=== PATIENT | female | born 1955 | race Caucasian/White ===

== ENCOUNTER 2016-08-11 10:27 | Emergency (ER) | payer MEDICARE ==
[2016-08-11 10:43] VITALS: O2SAT 96
[2016-08-11] MEDS ORDERED: Sodium Chloride 0.9% 1000 ML 1,000 ML IV STA (10:54)
[2016-08-11] MEDS ORDERED: Hydromorphone 1 mg/ml Ampule IV ONE ×2 (10:54→12:37)
[2016-08-11] MEDS ORDERED: Phenergan 25 MG INJ IV ONE (10:54)
--- NOTE | 2016-08-11 11:03 | ERPHSYRPT ---
- History of Present Illness Time Seen by Provider: 08/11/16 10:45 Historian: patient Exam Limitations: no limitations Patient Subjective Stated Complaint: ABDOMINAL PAIN Triage Nursing Assessment: PATIENTPRESENTED TO ER HAVING LOOSE STOOLS, VIMITTING STARTED THIS MORNING, PAIN IN URINARY TRACT, BACK PAIN, AND ABDOMINAL PAIN. EXCORIATION BETWEEN BOTH THIGHS BLANCHABLE. BOWEL SOUNDS HYPOACTIVE Physician History: FOR THE PAST 2 WEEKS PT HAS HAD DYSURIA; FOR THE PAST 14 HOURS INTERMITTENT HEADACHE;FOR THE PAST 4.75 HOURS LOWER ABDOMINAL PAIN, LOW BACK PAIN, NAUSEA, SUBJECTIVE FEVER, VOMITING X7 WITHOUT BLOOD AND DIARRHEA X4 WITHOUT BLOOD. PT ALSO C/O SHORTNESS OF AIR BECAUSE OF HER ASTHMA. Allergies/Adverse Reactions: No Known Drug Allergies Allergy (Verified 08/11/16 10:28) Home Medications: Albuterol Sulfate [Proair Hfa] 8.5 gm IH DAILY PRN PRN 08/11/16 [History] Amlodipine Besylate 5 mg [Norvasc 5 mg] 5 mg PO DAILY 08/11/16 [History] Aspirin 81 gm Chew [Baby Aspirin 81 mg Chew] 81 mg PO DAILY 08/11/16 [ History] Buspirone HCl 30 mg PO BID 08/11/16 [History] Duloxetine HCl 30 mg [Cymbalta 30 MG Capsule] 60 mg PO AC 08/11/16 [ History] Furosemide 80 mg [Lasix 80 mg] 80 mg PO BID 08/11/16 [History] Ibuprofen 600 mg PO TID 08/11/16 [History] Levothyroxine Sodium [Synthroid] 0.025 mg PO DAILY 08/11/16 [History] Lorazepam 0.5 mg [Ativan 0.5 MG] 0.5 mg PO DAILY 08/11/16 [History] Montelukast Sodium 10 mg PO AC 08/11/16 [History] Theophylline Anhydrous 300 mg* [Theodur 300MG] 300 mg PO BID 08/11/16 [ History] Trazodone HCl 100 mg PO HS 08/11/16 [History] Valsartan 320 mg PO DAILY 08/11/16 [History] Hx Tetanus, Diphtheria Vaccination/Date Given: Yes Hx Influenza Vaccination/Date Given: Yes Hx Pneumococcal Vaccination/Date Given: Yes Immunizations Up to Date: Yes - Review of Systems Constitutional: Fever Respiratory: Dyspnea Cardiac: No Chest Pain Abdominal/Gastrointestinal: Abdominal Pain, Nausea, Vomiting, Diarrhea Genitourinary Symptoms: Dysuria Musculoskeletal: Back Pain (LOWER) Neurological: Headache All Other Systems: Reviewed and Negative - Past Medical History Pertinent Past Medical History: Yes Cardiac History: Arrhythmia, Hypertension Respiratory History: Asthma History: Other Psycho-Social History: Anxiety, Depression Other Medical History: CHRONIC AFIB, CHRONIC UTI - Past Surgical History Past Surgical History: Yes Gastrointestinal: Appendectomy, Cholecystectomy Genitourinary: Other Female Surgical History: Section - Social History Smoking Status: Never smoker Drug Use: none - Nursing Vital Signs Nursing Vital Signs: Initial Vital Signs Temperature 97.8 F Temperature Source Oral Pulse Rate 95 Respiratory Rate 20 Blood Pressure [Right Arm] 149/91 Pain Intensity 10 - Physical Exam General Appearance: alert, anxiety Eye Exam: PERRL/EOMI Ears, Nose, Throat Exam: pharyngeal erythema, other (CERUMEN OCCLUSION OF LEFT EAR) Neck Exam: normal inspection Respiratory Exam: lungs clear Cardiovascular Exam: edema (+2 EDEMA OF ANKLES) Gastrointestinal/Abdomen Exam: soft, normal bowel sounds, tenderness (MILD TENDERNESS OF LEFT SIDE OF ABDOMEN AND EPIGASTRUM.) Back Exam: normal range of motion Extremity Exam: pedal edema (+2 PEDAL EDEMA) Neurologic Exam: alert, cooperative Skin Exam: No cyanosis SpO2 Interpretation: normal SpO2: 96 Oxygen Delivery: Room Air - Course Nursing assessment & vital signs reviewed: Yes EKG Interpreted by Me: RATE (83), NORMAL AXIS, NORMAL QRS, Other (SINUS ARRHYTHMIA) Ordered Tests: Active Orders 24 hr Category Date Time Status Catheter-Gilbert Sanchez STAT Care 08/11/16 10:54 Active EKG-ER Only STAT Care 08/11/16 10:54 Active IV Insertion STAT Care 08/11/16 10:54 Active ABDOMEN AND PELVIS W/0 CONTRAS [CT] Stat Exams 08/11/16 10:56 Completed CHEST 1 VIEW (PORTABLE) Stat Exams 08/11/16 10:55 Completed AMYLASE Stat Lab 08/11/16 11:00 Completed BLOOD CULTURE Stat Lab 08/11/16 11:00 Received CBC W DIFF Stat Lab 08/11/16 11:00 Completed CMP Stat Lab 08/11/16 11:00 Completed CULTURE, THROAT Stat Lab 08/11/16 11:10 Received CULTURE,URINE Stat Lab 08/11/16 10:54 Received LIPASE Stat Lab 08/11/16 11:00 Completed MAGNESIUM Stat Lab 08/11/16 11:00 Completed [place] Screen Stat Lab 08/11/16 11:04 Completed STREP SCREEN-BETA A Stat Lab 08/11/16 11:10 Completed TROPONIN Stat Lab 08/11/16 11:00 Completed UA W/ MICROSCOPIC Stat Lab 08/11/16 10:54 Completed Urine Triage Profile Stat Lab 08/11/16 10:55 Completed Medication Summary Generic Name Dose Route Start Last Admin Trade Name Freq PRN Reason Stop Dose Admin Ceftriaxone Sodium/Dextrose 1 g in 50 mls @ 100 mls/hr 08/11/16 12:37 12:45 Rocephin 1 Gm-D5w 50 Ml Bag IV 08/11/16 13:06 100 mls/hr STAT STA Administration Discontinued Medications Generic Name Dose Route Start Last Admin Trade Name Freq PRN Reason Stop Dose Admin Hydromorphone HCl 0.5 mg 08/11/16 10:54 08/11/16 11:18 Hydromorphone 1 Mg/Ml Ampule IV 08/11/16 10:55 0.5 mg STAT ONE Administration Hydromorphone HCl Confirm 08/11/16 11:12 Hydromorphone 1 Mg/Ml Ampule Administered 08/11/16 11:13 Dose 1 mg .ROUTE .STK-MED ONE Hydromorphone HCl 1 mg 08/11/16 12:37 08/11/16 12:45 Hydromorphone 1 Mg/Ml Ampule IV 08/11/16 12:38 1 mg STAT ONE Administration Hydromorphone HCl Confirm 08/11/16 12:41 Hydromorphone 1 Mg/Ml Ampule Administered 08/11/16 12:42 Dose 1 mg .ROUTE .STK-MED ONE Sodium Chloride 1,000 mls @ 999 mls/hr 08/11/16 10:54 08/11/16 11:18 Sodium Chloride 0.9% 1000 Ml IV 08/11/16 11:54 999 mls/hr .Q1H1M STA Administration Sodium Chloride Confirm 08/11/16 11:12 Sodium Chloride 0.9% 1000 Ml Administered 08/11/16 11:13 Dose 1,000 mls @ ud .ROUTE .STK-MED ONE Sodium Chloride Confirm 08/11/16 11:22 Sodium Chloride 0.9% 1000 Ml Administered 08/11/16 11:23 Dose 1,000 mls @ ud .ROUTE .STK-MED ONE Ceftriaxone Sodium/Dextrose Confirm 08/11/16 12:41 Rocephin 1 Gm-D5w 50 Ml Bag Administered 08/11/16 12:42 Dose 1 g in 50 mls @ ud IV .STK-MED ONE Promethazine HCl 12.5 mg 08/11/16 10:54 08/11/16 11:18 Phenergan 25 Mg Inj IV 08/11/16 10:55 12.5 mg STAT ONE Administration Promethazine HCl Confirm 08/11/16 11:12 Phenergan 25 Mg Inj Administered 08/11/16 11:13 Dose 25 mg .ROUTE .STK-MED ONE Promethazine HCl Confirm 08/11/16 11:22 Phenergan 25 Mg Inj Administered 08/11/16 11:23 Dose 25 mg .ROUTE .STK-MED ONE Lab/Rad Data: Laboratory Result Diagrams 08/11/16 11:00 08/11/16 11:00 Laboratory Results 08/11/16 08/11/16 08/11/16 Range/Units 11:10 11:04 11:00 WBC (4.0-10.5) K/mm3 RBC (4.1-5.4) M/mm3 Hgb (12.0-16.0) gm/dl Hct (35-47) % MCV (78-100) fl MCH (26-32) pg MCHC (32-36) g/dl RDW (11.5-14.0) % Plt Count (150-450) K/mm3 MPV (6-9.5) fl Gran % (36.0-66.0) % Lymphocytes % (24.0-44.0) % Monocytes % (0.0-12.0) % Eosinophils % (0.00-5.0) % Basophils % (0.0-0.4) % Basophils # (0-0.4) Sodium 142 (136-145) mEq/L Potassium 3.6 (3.5-5.1) mEq/L Chloride 105 (98-107) mEq/L Carbon Dioxide 27.3 (21-32) mEq/L Anion Gap 13.7 (5-15) MEQ/L BUN 11 (9-20) mg/dL Creatinine 0.99 (0.55-1.30) mg/dl Estimated GFR > 60 ML/MIN Glucose 135 H (70-110) MG/DL Calcium 9.6 (8.5-10.1) mg/dL Magnesium 1.9 (1.8-2.4) mg/dL Total Bilirubin 0.40 (0.2-1.0) mg/dL AST 16 (15-37) U/L ALT 23 (12-78) U/L Alkaline Phosphatase 63 (46-116) U/L Troponin I < 0.017 (0.000-0.056) ng/ml Serum Total Protein 8.2 (6.4-8.2) gm/dL Albumin 4.2 (3.4-5.0) g/dL Amylase 34 (25-115) U/L Lipase 122 (73-393) U/L Ur Collection Type Urine Color (YELLOW) Urine Appearance (CLEAR) Urine pH (5-6) Ur Specific [place] (1.005-1.025) Urine Protein (Negative) Urine Ketones (NEGATIVE) Urine Blood (0-5) Jim/ul Urine Nitrite (NEGATIVE) Urine Bilirubin (NEGATIVE) Urine Urobilinogen (0-1) mg/dL Ur Leukocyte Esterase (NEGATIVE) Urine Microscopic RBC (0-2) /HPF Urine Microscopic WBC (0-5) /HPF Ur Epithelial Cells (FEW) /HPF Urine Bacteria (NEGATIVE) /HPF Urine Glucose (NEGATIVE) mg/dL Urine Opiates Level (NEGATIVE) Ur Methadone (NEGATIVE) Urine Barbiturates (NEGATIVE) Ur Phencyclidine (PCP) (NEGATIVE) Urine Amphetamine (NEGATIVE) U Benzodiazepine Level (NEGATIVE) Urine Cocaine (NEGATIVE) Urine Marijuana (THC) (NEGATIVE) Monoscreen NEGATIVE (Negative) Streptococcus Screen NEGATIVE (Negative) Specimen Received 08/11/16 08/11/16 08/11/16 Range/Units 11:00 10:55 10:54 WBC 11.9 H (4.0-10.5) K/mm3 RBC 5.32 (4.1-5.4) M/mm3 Hgb 15.2 (12.0-16.0) gm/dl Hct 48.7 H (35-47) % MCV 91.5 (78-100) fl MCH 28.6 (26-32) pg MCHC 31.2 L (32-36) g/dl RDW 17.1 H (11.5-14.0) % Plt Count 319 (150-450) K/mm3 MPV 10.4 H (6-9.5) fl Gran % 72.9 H (36.0-66.0) % Lymphocytes % 19.6 L (24.0-44.0) % Monocytes % 6.4 (0.0-12.0) % Eosinophils % 1.0 (0.00-5.0) % Basophils % 0.1 (0.0-0.4) % Basophils # 0.01 (0-0.4) Sodium (136-145) mEq/L Potassium (3.5-5.1) mEq/L Chloride (98-107) mEq/L Carbon Dioxide (21-32) mEq/L Anion Gap (5-15) MEQ/L BUN (9-20) mg/dL Creatinine (0.55-1.30) mg/dl Estimated GFR ML/MIN Glucose (70-110) MG/DL Calcium (8.5-10.1) mg/dL Magnesium (1.8-2.4) mg/dL Total Bilirubin (0.2-1.0) mg/dL AST (15-37) U/L ALT (12-78) U/L Alkaline Phosphatase (46-116) U/L Troponin I (0.000-0.056) ng/ml Serum Total Protein (6.4-8.2) gm/dL Albumin (3.4-5.0) g/dL Amylase (25-115) U/L Lipase (73-393) U/L Ur Collection Type CATH Urine Color YELLOW (YELLOW) Urine Appearance CLEAR (CLEAR) Urine pH 6.0 (5-6) Ur Specific [place] 1.010 (1.005-1.025) Urine Protein 1+ (Negative) Urine Ketones NEGATIVE (NEGATIVE) Urine Blood 50 (0-5) Jim/ul Urine Nitrite NEGATIVE (NEGATIVE) Urine Bilirubin NEGATIVE (NEGATIVE) Urine Urobilinogen NORMAL (0-1) mg/dL Ur Leukocyte Esterase 2+ (NEGATIVE) Urine Microscopic RBC 5-10 (0-2) /HPF Urine Microscopic WBC >100 (0-5) /HPF Ur Epithelial Cells FEW (FEW) /HPF Urine Bacteria MODERATE (NEGATIVE) /HPF Urine Glucose NEGATIVE (NEGATIVE) mg/dL Urine Opiates Level NEG. (NEGATIVE) Ur Methadone NEG. (NEGATIVE) Urine Barbiturates NEG. (NEGATIVE) Ur Phencyclidine (PCP) NEG. (NEGATIVE) Urine Amphetamine NEG. (NEGATIVE) U Benzodiazepine Level NEG. (NEGATIVE) Urine Cocaine NEG. (NEGATIVE) Urine Marijuana (THC) NEG. (NEGATIVE) Monoscreen (Negative) Streptococcus Screen (Negative) Specimen Received 08/11/16 1100 - Departure Time of Disposition: 12:54 Departure Disposition: Home Clinical Impression: UTI, ABDOMINAL PAIN, VOMITING, DIARRHEA Condition: Fair Critical Care Time: No Instructions: Abdominal Pain-Adult, Urinary Tract Infection (UTI), Diarrhea and Traveler's Diarrhea -- Adult, Vomiting -- Adult Additional Instructions: FOLLOW UP WITH PRIVATE DOCTOR TOMORROW. Prescriptions: Promethazine HCl 25 mg [Phenergan 25 mg] 25 mg PO Q4H PRN PRN #14 tablet PRN Reason: Nausea/Vomiting Smz/Tmp Ds Tablet [Bactrim Ds Tablet] 1 udtab PO BID #20 tablet
[2016-08-11 11:07] LABS: ADD URINE CULTURE? YES (NO); Bilirubin NEGATIVE (NEGATIVE); Blood 50 Ery/ul (0-5); COMPLETE URINE MICROSCOPIC? YES; Collection Type CATH; Glucose NEGATIVE (NEGATIVE); Leukocyte Esterase 2+ (NEGATIVE)
[2016-08-11] MEDS ORDERED: Sodium Chloride 0.9% 1000 ML 1,000 ML ONE ×2 (11:12→11:22)
[2016-08-11] MEDS ORDERED: Hydromorphone 1 mg/ml Ampule ONE ×2 (11:12→12:41)
[2016-08-11] MEDS ORDERED: Phenergan 25 MG INJ ONE ×2 (11:12→11:22)
[2016-08-11 11:13] LABS: Bacteria MODERATE /HPF (NEGATIVE); Epithelial Cells FEW /HPF (FEW); WBC >100 /HPF (0-5)
--- NOTE | 2016-08-11 11:20 | XRAY ---
Indication: Wheezing. Comparison: None Portable chest rotated translating heart/mediastinal structures. Query right infrahilar infiltrate versus atelectasis. Left midlung subsegmental atelectasis/scarring and left upper lung calcified granuloma. Heart is enlarged. Bony thorax intact with mild osteopenia and degenerative changes. Impression: 1. Query right infrahilar infiltrate versus atelectasis. Correlate clinically. 2. Cardiomegaly.
[2016-08-11 11:27] LABS: BASOPHIL % 0.1 % (0.0-0.4); Granulocytes % 72.9 % (36.0-66.0); Lymphocytes % 19.6 % (24.0-44.0); Mean Cell Volume 91.5 fl (78-100); Mean Corpuscular Hemoglobin 28.6 pg (26-32); Mean Platelet Volume 10.4 fl (6-9.5); Monocytes % 6.4 % (0.0-12.0); Platelet Count 319 K/mm3 (150-450); Red Blood Count 5.32 M/mm3 (4.1-5.4); Red Cell Distribution Width 17.1 % (11.5-14.0); White Blood Count 11.9 K/mm3 (4.0-10.5)
[2016-08-11 11:29] LABS: ALBUMIN 4.2 g/dL (3.4-5.0); ALKALINE PHOSPHATASE 63 U/L (46-116); ANION GAP 13.7 MEQ/L (5-15); BLOOD UREA NITROGEN 11 mg/dL (9-20); CHLORIDE 105 mEq/L (98-107); Carbon Dioxide 27.3 mEq/L (21-32); Glucose 135 MG/DL (70-110); LIPASE 122 U/L (73-393); MAGNESIUM 1.9 mg/dL (1.8-2.4); Potassium 3.6 mEq/L (3.5-5.1); SGOT/AST 16 U/L (15-37); SGPT/ALT 23 U/L (12-78); SODIUM 142 mEq/L (136-145); Total Protein 8.2 gm/dL (6.4-8.2)
[2016-08-11 11:39] LABS: TROPONIN < 0.017 ng/ml (0.000-0.056)
[2016-08-11 12:08] VITALS: BP 149/91
--- NOTE | 2016-08-11 12:12 | XRAY ---
Indication: Abdomen pain. Multiple contiguous axial images obtained through the abdomen and pelvis without contrast as ordered. Comparison: None Lung bases demonstrates minimal bibasilar atelectasis/scarring. No infiltrate, consolidation, or effusion. Heart is enlarged. Small hiatal hernia. Abdomen/pelvis images slightly degraded by patient body habitus. Stomach is moderately fluid distended. Noncontrasted stomach and bowel loops appear nonobstructed. Appendix not seen. No free fluid/air. Previous cholecystectomy. There are bilateral renal calculi, largest left UPJ measuring 1.9 cm. No hydronephrosis or hydroureter. Sanchez balloon catheter and tiny air bubble seen in the urinary bladder. Left ovary demonstrates 2 tiny round calcifications, largest 6 mm. There is also a 1.8 cm left ovary cyst. Spleen is borderline enlarged measuring 12 cm in greatest axial dimension. Remaining liver, pancreas, spleen, adrenal glands, kidneys, ureters, bladder, uterus, and aorta appear unremarkable for noncontrast exam. Osseous structures intact with mild degenerative changes throughout the spine. There are moderate degenerative changes of both hips. Small fatty umbilical hernia. Impression: 1. Limited exam due to body habitus. No acute intra-abdominal/pelvic abnormalities on this noncontrast exam. 2. Nonobstructing bilateral renal calculi. 3. Left ovary cyst. Also 2 left ovary indeterminate round calcifications. 4. Cardiomegaly, small hiatal hernia, tiny fatty umbilical hernia, and borderline splenomegaly. CT DI 23.68
[2016-08-11] MEDS ORDERED: ROCEPHIN 1 Gm-D5w 50 ml Bag** 1 G/50 ML IVPB IV STA (12:37)
[2016-08-11] MEDS ORDERED: ROCEPHIN 1 Gm-D5w 50 ml Bag** 1 G/50 ML IVPB IV ONE (12:41)
[2016-08-11 12:52] VITALS: PULSE 93
--- NOTE | 2016-08-11 13:49 | XRAY ---
Indication: Chest pain and short of breath. Multiple contiguous axial images obtained through the chest without contrast. Comparison: None Mild bibasilar fibrosis/scarring, left greater than right. Posterior left upper lobe calcified granuloma. No suspicious pulmonary mass, infiltrate, consolidation, or effusion. Heart is borderline enlarged. Aorta minimally calcified without aneurysmal dilatation. No pathologic mediastinal lymphadenopathy. Small hiatal hernia. Bony thorax intact with minimal degenerative changes throughout the spine. There are few bilateral prominent bilateral axillary lymph nodes, largest on the right measuring 1.[address] abdomen reported separately. Impression: 1. No acute cardiopulmonary abnormalities on this noncontrast exam. 2. Borderline cardiomegaly, left lung calcified granuloma, and small hiatal hernia. 3. Nonspecific prominent bilateral axillary lymph nodes. CT DI 17.77
== END 2016-08-11 14:21 | disposition home or self-care (01) ==
LOC: ED 10:27
DX: N39.0 Urinary tract infection, site not specified (principal); R10.9 Unspecified abdominal pain; R11.10 Vomiting, unspecified; R19.7 Diarrhea, unspecified; R30.0 Dysuria; R50.9 Fever, unspecified; R06.00 Dyspnea, unspecified; J45.909 Unspecified asthma, uncomplicated; Z87.440 Personal history of urinary (tract) infections
CPT/HCPCS: 36415; 51702; 71010; 71250; 74176; 80053; 80307; 81000; 82150; 83690; 83735; 84484; 85025; 86308; 87040; 87070; 87077; 87086; 87186; 87430; 93005; 96360; 96374; 96375; 99284; J0696; J1170; J2550